=== PATIENT | female | born 1980 ===

== ENCOUNTER → 2019-02-09 | Outpatient (CLI) | payer OTHER | END | disposition home or self-care (01) | LOC: PRENATAL 13:30 | DX: O24.410 Gestational diabetes mellitus in pregnancy, diet controlled (principal); O09.512 Supervision of elderly primigravida, second trimester; O35.0XX2 Maternal care for (suspected) central nervous system malformation in fetus, fetus 2 ==

== ENCOUNTER 2019-05-18 09:52 | Inpatient (IN) | payer OTHER ==
[~2019-05-18] VITALS: Ht 149.9 cm; Wt 7.3 kg
[2019-06-09] MEDS ORDERED: PRENATAL TABLE1 EAC4 PO (04:57)
== END 2019-06-11 13:35 | disposition home or self-care (01) | DRG 798 ==
LOC: OB/GYN 05-25 15:15 → LDR 06-09 04:19 → OB/GYN 06-09 13:06
PROVIDERS: ADMIT Specialist
PROC: 10E0XZZ Delivery of Products of Conception, External Approach (ICD-10-PCS; principal; 2019-06-09)
PROC: 10907ZC Drainage of Amniotic Fluid, Therapeutic from Products of Conception, Via Natural or Artificial Opening (ICD-10-PCS; 2019-06-09)
PROC: 3E033VJ Introduction of Other Hormone into Peripheral Vein, Percutaneous Approach (ICD-10-PCS; 2019-06-09)
PROC: 4A1HXCZ Monitoring of Products of Conception, Cardiac Rate, External Approach (ICD-10-PCS; 2019-06-09)
PROC: 0UL70ZZ Occlusion of Bilateral Fallopian Tubes, Open Approach (ICD-10-PCS; 2019-06-10)
DX: O80 Encounter for full-term uncomplicated delivery (principal); Z37.0 Single live birth; Z3A.38 38 weeks gestation of pregnancy; Z30.2 Encounter for sterilization

== ENCOUNTER 2025-02-23 05:37 | Day surgery (SDC) | payer OTHER ==
[2025-02-21 12:06] VITALS: BP 113/73
[~2025-02-23] VITALS: Ht 149.9 cm; Wt 63.5 kg
[~2025-02-23 05:37] MED LIST: PRENATAL TABLE1 EAC4 PO
[2025-02-23] MEDS ORDERED: DIBUCAINE 30 GM TUBE ONE (07:01)
[2025-02-23] MEDS ORDERED: BUPIVACAINE HCL/MPF 0.5% 30ML VIAL ONE (07:01)
[2025-02-23] MEDS ORDERED: POVIDONE-IODINE 118 ML BOTT TOP ONE (07:01)
[2025-02-23] MEDS ORDERED: LIDOCAINE HCL 1%/EPINEPHRINE 20ML VIAL IJ ONE (07:01)
[2025-02-23] MEDS ORDERED: HEMOSTATIC MATRIX 1 KIT KIT TOP ONE (07:02)
[2025-02-23] MEDS ORDERED: METRONIDAZOLE/SODIUM CHLORIDE 500 MG/100 ML PIGGYBACK IV ONE (07:15)
[2025-02-23] MEDS ORDERED: CEFTRIAXONE SODIUM 2,000 MG VIAL ONE (07:15)
[2025-02-23] MEDS ORDERED: TRAM1TAB98 PO (08:36)
[2025-02-23] MEDS ORDERED: COLACE100 MG PO (08:36)
[2025-02-23] MEDS ORDERED: NEURONTIN300 MG PO (08:36)
== END 2025-02-23 12:05 | disposition home or self-care (01) ==
LOC: CIR.AMB 05:37
PROVIDERS: ATTEND Surgery
DX: K60.1 Chronic anal fissure (principal); K62.4 Stenosis of anus and rectum; K62.89 Other specified diseases of anus and rectum